=== PATIENT | female | born 1975 | race Caucasian/White ===

== ENCOUNTER 2019-05-13 14:26 | Emergency (ER) | payer MEDICAID ==
[~2019-05-13] VITALS: Ht 157.5 cm; Wt 82.7 kg
[2019-05-13 14:31] VITALS: BP 106/81
[2019-05-13] MEDS ORDERED: METH4TAB81 PO (14:56)
== END 2019-05-13 15:42 | disposition home or self-care (01) ==
LOC: ER 14:27
DX: M25.50 Pain in unspecified joint (principal); R21 Rash and other nonspecific skin eruption; Z79.899 Other long term (current) drug therapy
CPT/HCPCS: 99283

== ENCOUNTER 2020-07-03 08:55 | Day surgery (SDC) | payer MEDICAID ==
[2020-07-01 11:39] LABS: BASOPHILS # (AUTO) 0.1 X10'3 (0-0.2); BASOPHILS % (AUTO) 0.8 % (0-1); EOSINOPHILS # (AUTO) 0.3 X10'3 (0-0.9); EOSINOPHILS % (AUTO) 3.6 % (0-6); HEMATOCRIT 40.9 % (35.0-45.0); HEMOGLOBIN 13.7 g/dl (12.0-16.0); LYMPHOCYTES # (AUTO) 2.3 X10'3 (1.1-4.8); LYMPHOCYTES % (AUTO) 23.8 % (21-51); MEAN CORPUSCULAR HEMOGLOBIN 29.6 PG (27.0-31.0); MEAN CORPUSCULAR HGB CONC 33.5 g/dL (33.0-36.5); MEAN CORPUSCULAR VOLUME 88.4 FL (78-98); MONOCYTES # (AUTO) 0.5 X10'3 (0-0.9); MONOCYTES % (AUTO) 5.8 % (2-12); NEUTROPHILS # (AUTO) 6.3 X10'3 (1.8-7.7); PLATELET COUNT 338 X10'3 (140-440); RED BLOOD COUNT 4.62 X10'6 (4.20-5.60); RED CELL DISTRIBUTION WIDTH 14.3 % (11.5-14.5); WHITE BLOOD COUNT 9.5 X10'3 (4.5-11.0)
[2020-07-01 11:51] LABS: PARTIAL THROMBOPLASTIN TIME 29 SECONDS (22-32)
[2020-07-01 12:10] LABS: ALANINE AMINOTRANSFERASE 30 U/L (12-78); ALBUMIN 3.6 G/DL (3.4-5.0); ALKALINE PHOSPHATASE 53 IU/L (46-116); ANION GAP 8 (8-16); ASPARTATE AMINO TRANSFERASE 18 U/L (10-37); BILIRUBIN,TOTAL 0.3 MG/DL (0.1-1.0); BLOOD UREA NITROGEN 13 MG/DL (7-18); BUN/CREATININE RATIO 16.9 (6.6-38.0); CALCIUM 9.1 MG/DL (8.5-10.1); CHLORIDE 104 MMOL/L (99-107); CREATININE 0.77 MG/DL (0.40-0.90); GLUCOSE 118 MG/DL (70-104); POTASSIUM 3.7 MMOL/L (3.5-5.1); SODIUM 139 MMOL/L (135-145); TOTAL CARBON DIOXIDE 27.2 MMOL/L (24-32); TOTAL PROTEIN 7.3 G/DL (6.4-8.2); eGFR 81 ML/MIN
[~2020-07-03] VITALS: Ht 160 cm; Wt 79.2 kg
[2020-07-03] VITALS (12 sets, daily range): BP systolic 111–138; BP diastolic 69–90
[~2020-07-03 08:55] MED LIST: METH4TAB81 PO
[2020-07-03] MEDS ORDERED: diphenhydrAMINE 25mg capsule PO PRN (09:15)
[2020-07-03] MEDS ORDERED: normal saline 1,000 ML IV SCH (09:15)
[2020-07-03] MEDS ORDERED: nitroGLYCERIN 0.4mg SUBLingual tab SL PRN (09:15)
[2020-07-03] MEDS ORDERED: LORazepam 0.5 MG tablet PO PRN (09:15)
[2020-07-03] MEDS ORDERED: NITR0.4T48 SL (09:23)
[2020-07-03] MEDS ORDERED: BUPR150T6 PO (09:23)
[2020-07-03] MEDS ORDERED: METO-395 PO (09:23)
[2020-07-03] MEDS ORDERED: MELO-102 PO (09:23)
[2020-07-03] MEDS ORDERED: MULT-1074 PO (09:23)
[2020-07-03] MEDS ORDERED: VARE1TAB22 PO (09:23)
[2020-07-03] MEDS ORDERED: METH10TA6 PO (09:23)
[2020-07-03] MEDS ORDERED: iohexol 350 MG/ML 50ML vial IV ONE (10:39)
[2020-07-03] MEDS ORDERED: fentaNYL/PF 50MCG/1 ML 2ML syringe ONE ×2 (10:39→11:11)
[2020-07-03] MEDS ORDERED: midazolam 2 mg/2 ml injection ONE ×2 (10:39→11:11)
[2020-07-03] MEDS ORDERED: LIDOcaine 1% (10mg/ml)w/preservative injection 20ml MDV ONE (10:39)
[2020-07-03] MEDS ORDERED: iohexol 350MG/ML 100ml bottle IV ONE (10:39)
--- NOTE | 2020-07-03 13:00 | NUR ---
Pt urinated 300mL clear, yellow urine in bedpan.
== END 2020-07-03 18:00 | disposition home or self-care (01) ==
LOC: SSTAY O 08:55
PROVIDERS: ATTEND Internal Medicine Cardiovascular Disease
DX: R94.39 Abnormal result of other cardiovascular function study (principal); I25.119 Atherosclerotic heart disease of native coronary artery with unspecified angina pectoris; I25.82 Chronic total occlusion of coronary artery; I10 Essential (primary) hypertension; E78.5 Hyperlipidemia, unspecified; E66.9 Obesity, unspecified; Z68.30 Body mass index [BMI] 30.0-30.9, adult; F17.210 Nicotine dependence, cigarettes, uncomplicated; Z88.1 Allergy status to other antibiotic agents; Z88.8 Allergy status to other drugs, medicaments and biological substances; Z98.890 Other specified postprocedural states; Z79.899 Other long term (current) drug therapy; Z79.01 Long term (current) use of anticoagulants
CPT/HCPCS: 36415; 71046; 80053; 85025; 85610; 85730; 93005; 93458; 99152; C1760; C1769; J1644; J2001; J2250; J3010; J7030; Q0163; Q9967; A6258

== ENCOUNTER 2020-07-05 21:07 | Emergency (ER) | payer MEDICAID ==
[~2020-07-05] VITALS: Ht 160 cm; Wt 80.2 kg
[~2020-07-05 21:07] MED LIST changes: +BUPR150T6 PO; +MELO-102 PO; +METH10TA6 PO; -METH4TAB81 PO; +METO-395 PO; +MULT-1074 PO; +NITR0.4T48 SL; +VARE1TAB22 PO
[2020-07-05 21:13] VITALS: BP 153/90
[2020-07-05] MEDS ORDERED: morphine 4 MG/ML inj SYRINge IM ONE (22:40)
== END 2020-07-06 01:17 | disposition home or self-care (01) ==
LOC: ER 21:08
DX: S93.691A Other sprain of right foot, initial encounter (principal); M79.604 Pain in right leg; R20.0 Anesthesia of skin; R11.0 Nausea; Z72.89 Other problems related to lifestyle; Z79.899 Other long term (current) drug therapy; X58.XXXA Exposure to other specified factors, initial encounter; Y93.89 Activity, other specified; Y92.89 Other specified places as the place of occurrence of the external cause; Y99.8 Other external cause status
CPT/HCPCS: 93926; 96372; 99284; J2270

== ENCOUNTER 2022-04-17 14:51 | Emergency (ER) | payer MEDICAID ==
[~2022-04-17] VITALS: Ht 157.5 cm; Wt 90.9 kg
[~2022-04-17 14:51] MED LIST changes: +BUPR-317 PO; -BUPR150T6 PO; +METH-375 PO; -METH10TA6 PO
[2022-04-17 15:36] VITALS: BP 127/79
[2022-04-17] MEDS ORDERED: TETanus/Pertussis (Acell)/Diphther VAC/PF (Tdap-Adult) 0.5ml syringe IMVAC ONE (15:55)
[2022-04-17] MEDS ORDERED: bacitracin 15gm ointment TP ONE (15:55)
[2022-04-17] MEDS ORDERED: LIDOcaine 1% W/epiNEPHrine 1:200,000 10ml vial IJ ONE (15:55)
--- NOTE | 2022-04-17 16:26 | NUR ---
WOUND IRR WITH 150ML NACL
== END 2022-04-17 16:43 | disposition home or self-care (01) ==
LOC: ER 14:53
DX: S61.211A Laceration without foreign body of left index finger without damage to nail, initial encounter (principal); X58.XXXA Exposure to other specified factors, initial encounter; Y93.89 Activity, other specified; Y92.89 Other specified places as the place of occurrence of the external cause; Y99.8 Other external cause status
CPT/HCPCS: 12001; 90471; 90715; 99283; A6449

== ENCOUNTER → 2024-02-19 | Outpatient (CLI) | payer MEDICAID ==
[~2024-02-19] MED LIST changes: +ASPI-611 PO; +ATOR40TA72 PO; -BUPR-317 PO; +CELE-127 PO; +GABA300C PO; +LEVO150T8 PO; +LISI10TA27 PO; -MELO-102 PO; -METH-375 PO; -METO-395 PO; -MULT-1074 PO; -NITR0.4T48 SL; -VARE1TAB22 PO
== END | disposition home or self-care (01) ==
LOC: MRI 08:40
PROVIDERS: ATTEND Nurse Practitioner Adult Health
DX: M47.812 Spondylosis without myelopathy or radiculopathy, cervical region (principal); M48.02 Spinal stenosis, cervical region; M25.78 Osteophyte, vertebrae; M54.2 Cervicalgia; M25.511 Pain in right shoulder
CPT/HCPCS: 72141

== ENCOUNTER 2024-08-26 00:24 | Emergency (ER) | payer MEDICAID ==
[~2024-08-26] VITALS: Ht 157.5 cm; Wt 85.0 kg
[2024-08-26] MEDS ORDERED: PRED20TA PO (02:18)
[2024-08-26] MEDS: dexamethasone sod phosphate 10mg/ml inj PO STA (03:00)
[2024-08-26 03:07] VITALS: BP 125/88; PULSE 82; RESP 18; TEMP 98.4; O2SAT 98
== END 2024-08-26 03:03 | disposition home or self-care (01) ==
LOC: ER 00:25
DX: R21 Rash and other nonspecific skin eruption (principal); I50.9 Heart failure, unspecified; E03.9 Hypothyroidism, unspecified; F31.9 Bipolar disorder, unspecified; I25.2 Old myocardial infarction; Z88.8 Allergy status to other drugs, medicaments and biological substances; Z88.2 Allergy status to sulfonamides
CPT/HCPCS: 99283; J1100

== ENCOUNTER 2024-09-02 10:55 | Emergency (ER) | payer MEDICAID ==
[~2024-09-02] VITALS: Ht 157.5 cm; Wt 83.6 kg
[~2024-09-02 10:55] MED LIST changes: +PRED20TA PO
[2024-09-02 10:57] VITALS: BP 127/88; PULSE 90; RESP 16; TEMP 98.1; O2SAT 100
[2024-09-02] MEDS ORDERED: ERYT1OIN6 RIGHTEYE (12:51)
== END 2024-09-02 12:58 | disposition home or self-care (01) ==
LOC: ER 10:56
DX: H10.9 Unspecified conjunctivitis (principal); I50.9 Heart failure, unspecified; E03.9 Hypothyroidism, unspecified; Z88.0 Allergy status to penicillin; Z88.2 Allergy status to sulfonamides; Z88.8 Allergy status to other drugs, medicaments and biological substances
CPT/HCPCS: 99283

== ENCOUNTER 2024-10-27 06:14 | Outpatient (CLI) | payer MEDICAID ==
[~2024-10-27 06:14] MED LIST changes: -PRED20TA PO
[2024-10-27] MEDS ORDERED: LIDOcaine 1%/PF 5ML 10 MG/ML VIAL ONE (06:41)
[2024-10-27] MEDS ORDERED: iohexol 300 MG/1 ML 50ml polymer ONE (06:41)
[2024-10-27] MEDS ORDERED: LIDOcaine 1% 30ml preserv. free vial ONE (06:42)
[2024-10-27] MEDS ORDERED: GADOTERATE MEGLUMINE 7.5 MMOL/15 ML VIAL IV ONE (06:42)
== END 2024-10-27 23:59 | disposition home or self-care (01) ==
LOC: RAD 06:14
PROVIDERS: ATTEND Pediatrics Sports Medicine
DX: M25.511 Pain in right shoulder (principal); M75.41 Impingement syndrome of right shoulder; M75.101 Unspecified rotator cuff tear or rupture of right shoulder, not specified as traumatic; M75.51 Bursitis of right shoulder
CPT/HCPCS: 73222; A9575; J2003; J3490; Q9967; 23350

== ENCOUNTER 2025-09-07 20:43 | Emergency (ER) | payer MEDICAID ==
[~2025-09-07] VITALS: Ht 157.5 cm; Wt 71.0 kg
[~2025-09-07 20:43] MED LIST changes: +CYCL-1 PO
[2025-09-07 21:39] VITALS: BP 129/61; PULSE 69; RESP 15; TEMP 97.6; O2SAT 98
[2025-09-07 22:03] LABS: URINE HCG NEGATIVE (NEG)
[2025-09-07 22:04] LABS: LEUKOCYTE ESTERASE ,URINE NEGATIVE (Neg); NITRITES, URINE POSITIVE (Neg); OCCULT BLOOD,URINE NEGATIVE (Neg)
[2025-09-07 22:09] LABS: UA COLLECTION TYPE CLN CATCH MIDSTREAM
[2025-09-07 22:12] LABS: MUCUS STRANDS MANY /LPF (Neg); SQUAMOUS EPITHELIAL CELL,UR NONE SEEN /LPF (FEW)
[2025-09-07 22:30] LABS: MEAN PLATELET VOLUME 7.5 FL (7.4-10.4); RED CELL DISTRIBUTION WIDTH 14.0 % (11.5-14.5)
[2025-09-07 22:57] LABS: CREATININE 0.85 MG/DL (0.40-0.90); TOTAL CARBON DIOXIDE 32.0 MMOL/L (24-32); eCRCL 63 ML/MIN; eGFR 71 ML/MIN
[2025-09-08] MEDS ORDERED: CEFP200T13 PO (00:55)
--- NOTE | 2025-09-08 00:55 | Physician Documentation ---
History of Present Illness ~ Chief Complaint: Urinary Retention Stated Complaint: URINARY RETENTION Time Seen by MD: 00:46 Primary Medical Doctor: [facility] This is a very pleasant 49-year-old female with no significant past medical history who presents for evaluation of left flank pain, dysuria, frequency, urgency that has been on and off for the last month. No particular palliating or aggravating factors. Did not attempt to treat it. Eventually decided to come in for evaluation. Denies any current nausea or vomiting. She typically gets nausea and vomiting for the 1st two days after administration of a weekly Wegovy. Denies any other symptoms. Denies any concerns for tobacco, alcohol or illicit substances use. Medication Reconciliation Allergies: Coded Allergies: pregabalin (Verified Allergy, Intermediate, "Makes me crazy", 09/07/25) Penicillins (Unverified Adverse Reaction, Mild, vomiting, 09/07/25) >5 years, vomiting, no treatment, PEN-FAST 0 Sulfa (Sulfonamide Antibiotics) (Unverified Adverse Reaction, Mild, vomiting, 09/07/25) Scheduled Aspirin (Aspir 81), 1 TAB PO DAILY, (Reported) Atorvastatin Calcium (Atorvastatin Calcium), 1 TAB PO DAILY, (Reported) Celecoxib (Celecoxib), 1 CAP PO DAILY, (Reported) Cyclobenzaprine* (Cyclobenzaprine*), 1 TAB PO Q8H Gabapentin (Neurontin), 1 CAP PO TID, (Reported) Levothyroxine Sodium (Levothyroxine Sodium), 165 MCG PO DAILY, (Reported) Lisinopril (Lisinopril), 1 TAB PO DAILY, (Reported) Past Medical History Past Medical History: No Pertinent History, Congestive Heart Failure, Myocardial Infarction, Hypothyroidism, Bipolar Past Surgical History: noncontributory Patient History: Patient reports no known family medical history. Smoking Status: Current every day smoker Alcohol Use: Occasionally Lives In: Home Review of Systems ROS 10 point review of systems was performed and unless noted above in HPI is negative for acute process/complaint. Physical Exam Vital Signs: Temperature: 97.6, Source: Temporal, Heart Rate: 69, Respiratory Rate: 15, BP: 129/61, Pulse Oximetry: 98, Weight: 71.000 Physical Exam GENERAL: Awake, alert, oriented, GCS 15, no apparent distress, non-toxic appearing, answers questions, follows commands appropriately. Examined in bed 19 HEENT: Atraumatic, normocephalic, pupils equal, extraocular muscles intact, sclerae anicteric, mucus membranes moist, oropharynx is clear, no stridor. NECK: supple, full active range of motion, trachea midline, no thyromegaly, no lymphadenopathy, no JVD. CARDIOVASCULAR: regular rate/rhythm, no murmurs/gallops/rubs, Pulses are 2+ in all extremities and symmetric. Capillary refill less than 2 seconds. PULMONARY: Nonlabored, good air movement ,no respiratory distress, speaking in full sentences, clear to auscultation bilaterally, no wheezing, no ronchi, no rales, no accessory muscle use. GASTROINTESTINAL: Soft, non-tender, non-distended, normal active bowel sounds, no organomegaly, no pulsatile masses, left CVA tenderness. NEUROLOGIC: Lucid with normal mental status. Normal facial symmetry. Moves all extremities symmetrically and with purpose. No truncal ataxia. Speech is fluid without evidence of dysarthria or aphasia, no focal deficits appreciated. MUSCULOSKELETAL: There is full range of motion of all extremities. There is no joint pain or joint swelling or joint erythema. There is no muscle pain or tenderness or swelling. EXTREMITIES: warm, well-perfused, no cyanosis, no clubbing, no edema, no acute deformities. Skin: warm, dry, no rashes or lesions, no jaundice, no petechiae orpurpura. No ecchymosis. PSYCHIATRIC: Normal affect, normal insight, normal concentration. Focused exam: [] Progress Results/Orders Results/Orders Orders - ISAAC LOWE DO Cult Urine + [place] (09/07/25 22:12) Completed Orders - ISAAC LOWE DO Hcg, Ur Ql (09/07/25 21:46) Cbc/Diff (09/07/25 21:46) BMP (09/07/25 21:46) Lipase (09/07/25 21:46) CMP (09/07/25 21:46) Ua W/Microscopic, Cult If Ind (09/07/25 21:47) Vital Signs 09/07/25 21:39 Temp 97.6 Pulse 69 Resp 15 B/P (MAP) 129/61 Pulse Ox 98 Laboratory Tests Test 09/07/25 21:47 09/07/25 22:14 Urine Specimen Description Cln catch midstream Urine Color Yellow Urine Clarity Slightly cloudy Urine pH 6.0 Urine Specific [place] >=1.030 Urine Protein 30 H Urine Glucose (UA) Negative Urine Ketones Trace H Urine Occult Blood Negative Urine Nitrite Positive H Urine Bilirubin Moderate Urine Urobilinogen 0.2 Urine Leukocyte Esterase Negative Urine RBC 3-10 Urine WBC 10-20 H Urine Squamous Epithelial Cells None seen Urine Bacteria 2+ Urine Mucus Many Urine Culture Indicated Indicated Volume Urine Centrifuged 10 ml Urine HCG, Qualitative Negative Urine Comment White Blood Count 5.8 Red Blood Count 4.54 Hemoglobin 13.5 Hematocrit 39.7 Mean Corpuscular Volume 87.5 Mean Corpuscular Hemoglobin 29.8 Mean Corpuscular Hemoglobin Concent 34.0 Red Cell Distribution Width 14.0 Platelet Count 309 Mean Platelet Volume 7.5 Neutrophils (%) (Auto) 56.2 Lymphocytes (%) (Auto) 28.9 Monocytes (%) (Auto) 12.0 Eosinophils (%) (Auto) 2.1 Basophils (%) (Auto) 0.8 Neutrophils # (Auto) 3.3 Lymphocytes # (Auto) 1.7 Monocytes # (Auto) 0.7 Eosinophils # (Auto) 0.1 Basophils # (Auto) 0.0 CBC Comment Sodium Level 140 Potassium Level 3.5 Chloride Level 101 Carbon Dioxide Level 32.0 Anion Gap 7 L Blood Urea Nitrogen 7 Creatinine 0.85 Estimated GFR/1.73 m2 71 BUN/Creatinine Ratio 8.2 L Glucose Level 86 Calcium Level 9.4 Total Bilirubin 0.5 Aspartate Amino Transf (AST/SGOT) 21 Alanine Aminotransferase (ALT/SGPT) 27 Alkaline Phosphatase 50 Total Protein 7.4 Albumin 4.0 Globulin 3.4 Albumin/Globulin Ratio 1.2 Lipase 53 Chemistry Comments Microbiology Date/Time Source Procedure Growth Status 09/07/25 22:12 Urine Clean Catch Midstream Urine Culture - Preliminary Culture received. Resulted Medical Decision Making Additional information obtaine: N/A Findings Facility Status: [facility] The plan was discussed with the patient, who demonstrates clear understanding of the plan and is in agreement with the plan unless otherwise noted in the chart. All questions have been answered, all concerns were addressed unless otherwise documented. I was available throughout their ED stay for frequent reassessment and questions. Differential Diagnoses (considered and possible or likely): [Urinary tract infection, pyelitis, pyelonephritis, less likely kidney stone, less likely infected kidney stone, less likely acute intra-abdominal process requiring surgical intervention] ??Differential Diagnoses (considered and unlikely, not requiring evaluation currently): [No evidence of trauma] MDM Data Please see [facility] for the following: Independent Historians and external Records Review. Historian: [Patient] Independent Historians: ?[None] Medication Management: [Reviewed medication list] Social History and determinants: [Reviewed] Please see the body of the note for the following: Any independent interpretations of ECG, imaging studies. All vitals signs/haemodynamics, ordered tests were independently reviewed and interpreted by myself. Nursing triage complaint and vitals reviewed, additional nursing notes were reviewed as available and I agree unless otherwise noted or documented in contradiction in the chart Vital Signs: Independently reviewed Labs: Independently interpreted Imaging: Independently interpreted Old Medical Records: Independently reviewed, see [facility] for relevant summary and information Additionally notably showing: [Hemodynamically stable. Laboratory workup was unremarkable except that you were in the is positive for UTI.] Tests considered but not ordered include: [Advanced imaging has been considerably does not appear to be necessary.] Social Determinants of Health Impact: Patient was evaluated in [facility] [place] to healthcare due to below par ratio of patient to medical providers. [] Comorbid Conditions Impacting Present Evaluation and Care/Treatment: [None reported with the patient] Management Discussions with other Healthcare Providers: [None] Treatment and Disposition Medication Management (Given or considered): [1st dose of antibiotics, pain management]. See EMR for details Consideration for Hospitalization/Escalation/Deescalation of Care: Admission for observation has been considered, [however the patient is able to tolerate p.o., their symptoms are controlled, they are able to rely on oral medications, and their chief complaint/diagnosis can be managed on outpatient basis.] ?ED Course:?[No clinical deterioration.] ?Shared decision making:?[Patient is hemodynamically stable for discharge home with follow with their primary care provider. [ ] Specific and cautious return precautions provided and discussed with full understanding. Any incidental findings were also discussed and follow up recommendations given. [] All questions answered. Patient/family were able to verbalize back return precautions. Patient/family agree to plan. Copies of imaging and laboratory s tudies were provided.] Code status:?FULL Please see the full Electronic Medical Record for full details of nursing documentation, medications list, other records of complete past medical history and conditions, vital signs, laboratory studies, and any radiologic study interpretations by radiologists. Portions of this note were completed using [employer] dictation software and as a result there may exist minor errors in spelling. I have reviewed elements of past family and social history and agree as included in note. Urinary Diff Dx:Considerations: Include: Other (See body of main note for differential diagnosis) Genital Diff Dx:Considerations: Unlikely: Other Departure Disposition: HOME / SELF CARE / HOMELESS Impression: Primary Impression: Pyelonephritis of left kidney Condition: Improved Discharge Instructions: Pyelonephritis, Adult Referrals: NO PRIMARY CARE PROVIDER (PCP) Prescriptions Cefpodoxime Proxetil (Vantin) 200 Mg Tablet 1 TAB PO Q12H for 10 Days, #20 TAB Prov: ISAAC LOWE DO 09/08/25 Education Educated: Patient Educated regarding: diagnosis, treatment, prognosis, need for follow up Signature Scribe Signature: No scribe Attestation: The note accurately reflects work and decisions made by me.Isaac Lowe DO 09/08/25 00:55 ISAAC LOWE DO Sep 08, 2025 00:55
[2025-09-08] MEDS: phenazopyridine 100mg tablet PO ONE (01:08)
[2025-09-08] MEDS: CefTRIAXone 500MG IM Kit w/LIDOcaine IM ONE (01:09)
== END 2025-09-08 01:23 | disposition home or self-care (01) ==
LOC: ER 20:44
DX: N12 Tubulo-interstitial nephritis, not specified as acute or chronic (principal); F17.200 Nicotine dependence, unspecified, uncomplicated; Z88.0 Allergy status to penicillin; Z88.2 Allergy status to sulfonamides; Z88.8 Allergy status to other drugs, medicaments and biological substances; Z79.82 Long term (current) use of aspirin
CPT/HCPCS: 36415; 80053; 81001; 81025; 83690; 85025; 87088; 96372; 99283; J0696

== ENCOUNTER 2025-09-13 16:13 | Emergency (ER) | payer MEDICAID ==
[~2025-09-13] VITALS: Ht 157.5 cm; Wt 69.1 kg
[~2025-09-13 16:13] MED LIST changes: +CEFP200T13 PO
[2025-09-13 16:15] VITALS: BP 124/79; PULSE 68; O2SAT 98
[2025-09-13 17:06] VITALS: RESP 20
[2025-09-13 18:24] LABS: LEUKOCYTE ESTERASE ,URINE SMALL (Neg); NITRITES, URINE NEGATIVE (Neg); OCCULT BLOOD,URINE TRACE-INTACT (Neg)
[2025-09-13 18:30] LABS: UA COLLECTION TYPE CLN CATCH MIDSTREAM
[2025-09-13 18:35] LABS: SQUAMOUS EPITHELIAL CELL,UR MANY /LPF (FEW); YEAST MODERATE /HPF (NEGATIVE)
[2025-09-13 18:48] LABS: MEAN PLATELET VOLUME 7.8 FL (7.4-10.4); RED CELL DISTRIBUTION WIDTH 14.2 % (11.5-14.5)
[2025-09-13 19:00] LABS: CREATININE 0.86 MG/DL (0.40-0.90); TOTAL CARBON DIOXIDE 33.2 MMOL/L (24-32); eCRCL 62 ML/MIN; eGFR 70 ML/MIN
[2025-09-13] MEDS: ondansetron/PF 4mg/2ml inj IV ONE (19:10)
[2025-09-13] MEDS: CefTRIAXone 1000mg IM Kit (w/lidocaine diluent) IM ONE (19:10)
[2025-09-13 19:38] VITALS: TEMP 96.7
[2025-09-13] MEDS: normal saline 1000ml 1,000 ML IV ONE (19:57)
--- NOTE | 2025-09-13 20:18 | Physician Documentation ---
History of Present Illness Chief Complaint: Flank Pain Stated Complaint: FLANK PAIN Time Seen by MD: 17:18 Primary Medical Doctor: [facility] Mode of Arrival: RACHEL DOUGHERTY Is a very pleasant 49-year-old female that presents to the emergency department for evaluation of flank pain. Patient reports that she has recently started a DLP 1 isn't eating in the last 3 weeks and has had significant nausea and vomiting. Patient reports he has been able to take down keep down any of her psych meds and keep down anything antibiotics that she was prescribed in the of this month. Patient reports she was seen here on the for similar symptoms and at that time diagnosed with a UTI. Today the patient reports that she is continuing to have UTI symptoms and now she has left-sided flank pain. Patient reports he may have had fevers has chills has nausea and vomiting no diarrhea reported at this time. Patient denies chest pain shortness of breath headache abdominal pain or any other symptoms at this time. Medication Reconciliation Allergies: Coded Allergies: pregabalin (Verified Allergy, Intermediate, "Makes me crazy", 09/13/25) Penicillins (Unverified Adverse Reaction, Mild, vomiting, 09/13/25) >5 years, vomiting, no treatment, PEN-FAST 0 Sulfa (Sulfonamide Antibiotics) (Unverified Adverse Reaction, Mild, vomiting, 09/13/25) Scheduled Aspirin (Aspir 81), 1 TAB PO DAILY, (Reported) Atorvastatin Calcium (Atorvastatin Calcium), 1 TAB PO DAILY, (Reported) Cefpodoxime Proxetil (Vantin), 1 TAB PO Q12H Celecoxib (Celecoxib), 1 CAP PO DAILY, (Reported) Cyclobenzaprine* (Cyclobenzaprine*), 1 TAB PO Q8H Gabapentin (Neurontin), 1 CAP PO TID, (Reported) Levothyroxine Sodium (Levothyroxine Sodium), 165 MCG PO DAILY, (Reported) Lisinopril (Lisinopril), 1 TAB PO DAILY, (Reported) Past Medical History Past Medical History: No Pertinent History, Congestive Heart Failure, Myocardial Infarction, Hypothyroidism, Bipolar Past Surgical History: noncontributory Patient History: Patient reports no known family medical history. Alcohol Use: Occasionally Lives In: Home Review of Systems ROS As stated above in the HPI, otherwise all systems are reviewed and negative. Physical Exam Vital Signs: Temperature: 96.7, Source: Temporal, Heart Rate: 68, Respiratory Rate: 20, BP: 124/79, Pulse Oximetry: 98, Weight: 69.100 Oxygen Flow Rate: 0 Physical Exam VITALS: Reviewed and as above. GENERAL: Alert, no apparent distress. HEENT: Normocephalic, atraumatic, PERRL, EOMI, dry mucosa, no erythema RESPIRATORY: Lungs clear, normal breath sounds, no respiratory distress. CHEST: No accessory muscle use, no retractions CV: Regular rate, rhythm, no edema, no murmur, No: JVD GI: Soft, non-tender, bowels sounds present, no rebound, guarding, or rigidity BACK: Positive left CVA tenderness, or swelling MUSCULOSKELETAL No deformities, no edema SKIN: Warm and dry, no rash NEURO: Oriented x4, No motor or sensory deficit PSYCH: Normal mood and affect, no agitation Progress Results/Orders Results/Orders Orders - SUZANNE NINA [employer] * Iv Access / Saline Lock * (09/13/25 19:10) Ondansetron Inj. (Zofran 4mg/2ml Vial) (09/13/25 19:10) Ceftriaxone/H7o-Ebsbayyc 1gm (Rocephin 1 (09/13/25 20:00) Completed Orders - SUZANNE NINA [employer] Cbc/Diff (09/13/25 18:13) CMP (09/13/25 18:13) Ua W/Microscopic, Cult If Ind (09/13/25 16:26) Normal Saline 1000ml (0.9% Sodium Chlori (09/13/25 19:10) Ceftriaxone Im Kit W/Lidocaine (Rocephin (09/13/25 19:10) Medications Received in ER Medications (Trade) Dose Ordered Sig/Vanessa Route PRN Reason Start Time Stop Time Status Last Admin Dose Admin Sodium Chloride 1,000 ml @ 1,000 mls/hr ONCE ONCE IV 09/13/25 19:10 09/13/25 20:09 DC 09/13/25 19:57 1,000 MLS/HR Vital Signs 09/13/25 09/13/25 09/13/25 16:15 17:06 19:38 Temp 96.7 96.7 Pulse 68 Resp 16 20 B/P (MAP) 124/79 Pulse Ox 98 O2 Flow Rate 0 Laboratory Tests Test 09/13/25 16:26 09/13/25 18:24 Urine Specimen Description Cln catch midstream Urine Color Yellow Urine Clarity Slightly cloudy Urine pH 6.0 Urine Specific Buford <=1.005 Urine Protein Negative Urine Glucose (UA) Negative Urine Ketones Trace H Urine Occult Blood Trace-intact Urine Nitrite Negative Urine Bilirubin Negative Urine Urobilinogen 0.2 Urine Leukocyte Esterase Small H Urine RBC 0-2 Urine WBC 10-20 H Urine Squamous Epithelial Cells Many Urine Bacteria 1+ Urine Hyaline Casts 3-5 Urine Yeast Moderate Urine Culture Indicated Rejected for culture Volume Urine Centrifuged 10 ml Urine Comment White Blood Count 5.1 Red Blood Count 4.56 Hemoglobin 13.7 Hematocrit 40.0 Mean Corpuscular Volume 87.8 Mean Corpuscular Hemoglobin 29.9 Mean Corpuscular Hemoglobin Concent 34.1 Red Cell Distribution Width 14.2 Platelet Count 302 Mean Platelet Volume 7.8 Neutrophils (%) (Auto) 59.2 Lymphocytes (%) (Auto) 28.7 Monocytes (%) (Auto) 8.9 Eosinophils (%) (Auto) 2.3 Basophils (%) (Auto) 0.9 Neutrophils # (Auto) 3.0 Lymphocytes # (Auto) 1.5 Monocytes # (Auto) 0.5 Eosinophils # (Auto) 0.1 Basophils # (Auto) 0.0 CBC Comment Sodium Level 141 Potassium Level 3.3 L Chloride Level 100 Carbon Dioxide Level 33.2 H Anion Gap 8 Blood Urea Nitrogen 8 Creatinine 0.86 Estimated GFR/1.73 m2 70 BUN/Creatinine Ratio 9.3 L Glucose Level 76 Calcium Level 9.9 Total Bilirubin 0.7 Aspartate Amino Transf (AST/SGOT) 23 Alanine Aminotransferase (ALT/SGPT) 28 Alkaline Phosphatase 51 Total Protein 7.3 Albumin 4.2 Globulin 3.1 Albumin/Globulin Ratio 1.4 Chemistry Comments Medical Decision Making Additional information obtaine: other Findings Medical Decision Making - Discharge Number of Diagnoses/Management Options: Moderate This 49-year-old female presents with left-sided flank pain, fever, chills, nausea, and vomiting in the setting of persistent UTI symptoms despite recent antibiotic treatment initiated on the of this month. She was previously diagnosed with a urinary tract infection but has been unable to complete her antibiotic course due to intractable nausea and vomiting, which began after starting a dipeptidyl peptidase-4 (DPP-4) inhibitor approximately three weeks ago. DPP-4 inhibitors are associated with gastrointestinal adverse events including nausea, though these are generally less common than with other antidiabetic agents. The combination of flank pain with laboratory evidence of urinary tract infection is highly suggestive of acute pyelonephritis. The patient's inability to tolerate oral antibiotics due to medication-induced nausea represents a significant complicating factor that likely contributed to treatment failure of her initial UTI and progression to upper tract infection. Amount and Complexity of Data: Moderate Urinalysis demonstrated pyuria and bacteriuria consistent with urinary tract infection. Urine culture with antimicrobial susceptibility testing was obtained to guide definitive antibiotic therapy. Given the patient's clinical stability without signs of sepsis or septic shock, imaging was not indicated at this time. The patient received appropriate supportive care in the emergency department including intravenous fluid resuscitation (1 liter) and antiemetic therapy with ondansetron. Risk of Complications: Moderate The patient's persistent nausea and vomiting precluding oral intake necessitated initial intravenous antibiotic therapy and antiemetic management. However, she does not meet criteria for hospital admission as she lacks severe illness, sepsis, or critical modifying factors. Extended emergency department observation with transition to outpatient oral therapy is appropriate for patients who initially require intravenous therapy but are otherwise stable. Assessment and Plan: Acute pyelonephritis - The patient received an initial dose of intravenous ceftriaxone 1 gram in the emergency department, which is recommended when local fluoroquinolone resistance exceeds 10% or when oral therapy tolerance is uncertain. Following clinical improvement and demonstrated tolerance of oral intake, she will be transitioned to oral ciprofloxacin 500 mg twice daily for 7 days, pending urine culture susceptibility results. If the organism demonstrates resistance to fluoroquinolones, therapy will be adjusted based on susceptibility data. DPP-4 inhibitor-associated nausea and vomiting - The temporal relationship between DPP-4 inhibitor initiation and onset of gastrointestinal symptoms, combined with the patient's inability to tolerate oral medications for three weeks, strongly suggests drug-induced nausea. Recommend discontinuation of the DPP-4 inhibitor and consultation with her primary care physician or facing baster for alternative diabetes management. Ondansetron 4-8 mg every 8 hours as needed has been prescribed for breakthrough nausea. Medication adherence - Given resolution of nausea with intravenous ondansetron and ability to tolerate oral intake in the emergency department, the patient should be able to complete the oral antibiotic course. She has been counseled on the importance of completing the full 7-day course and maintaining adequate hydration. Disposition: Discharge home with close outpatient follow-up in 48-72 hours to assess clinical response to antibiotic therapy. The patient has been instructed to return immediately for worsening symptoms, persistent fever beyond 48-72 hours, or inability to tolerate oral antibiotics, as these would warrant repeat evaluation and possible imaging. Follow-up: Urine culture results will be reviewed within 48 hours and antibiotic therapy adjusted if needed based on susceptibility data. Primary care follow-up scheduled within one week to reassess diabetes management and discuss alternative to DPP-4 inhibitor. Differential Dx:Considerations: Urinary obstruction, Urinary tract infection, Urolithiasis, Other, N/A Departure Disposition: HOME / SELF CARE / HOMELESS Impression: Primary Impression: Acute urinary tract infection Condition: Stable Discharge Instructions: Dehydration, Adult, [id number], Pyelonephritis, Adult Additional Instructions: Your Diagnosis You have been diagnosed with acute pyelonephritis, which is a kidney infection. This is a more serious type of urinary tract infection that affects the kidneys rather than just the bladder. What We Did in the Emergency Department Gave you intravenous (IV) fluids to help with dehydration Gave you ondansetron (Zofran) for nausea and vomiting Gave you ceftriaxone (Rocephin), an antibiotic through your IV Collected a urine sample to test which bacteria is causing your infection Your Medications Continue taking your prescribed antibiotics exactly as directed. It is very important that you complete the full course of antibiotics, even if you start feeling better. Do not stop taking them early, as this can allow the infection to come back or become resistant to treatment. Take ondansetron (Zofran) as prescribed for nausea. This should help you keep down your antibiotics and other medications. Once you are able to keep down food and liquids without vomiting, you should restart your psychiatric medications as prescribed by your doctor. What to Do at Home Drink plenty of fluids - aim for 8-10 glasses of water per day to help flush out the infection Rest - your body needs energy to fight the infection Take all medications as prescribed - set reminders if needed to help you remember Eat small, frequent meals if you still have some nausea Monitor your temperature - check it twice daily for the first few days Follow-Up Care You must follow up with your primary care provider within 2-3 days. This is very important to make sure the infection is improving and that the antibiotic you are taking is working against the bacteria causing your infection. Your doctor will review your urine culture results and may need to change your antibiotic based on those results. You should also discuss your recent nausea and vomiting with your primary care provider, especially regarding the diabetes medication you started three weeks ago, as this may need to be changed. When to Return to the Emergency Department Come back to the emergency department immediately or call 911 if you experience any of the following: Fever that continues or gets worse after 48-72 hours of taking antibiotics Worsening flank or back pain Inability to keep down liquids or medications Confusion or difficulty staying awake Decreased urination or no urination Severe abdominal pain Vomiting that won't stop Blood in your urine that is new or getting worse Feeling dizzy or lightheaded when standing Any other symptoms that concern you What to Expect Most people start feeling better within 1-2 days of starting antibiotics. However, it may take several days to feel completely back to normal. If you do not notice any improvement after 1-2 days, contact your doctor or return to the emergency department. Important Reminders Take your full course of antibiotics - this typically lasts 7-14 days depending on which antibiotic you are prescribed Stay well hydrated - this helps your kidneys flush out the infection Keep your follow-up appointment - your doctor needs to make sure the infection is clearing Watch for warning signs - don't hesitate to return if symptoms worsen If you have any questions or concerns, contact your primary care provider or ret urn to the emergency department. Referrals: NO PRIMARY CARE PROVIDER (PCP) Education Educated: Patient Educated regarding: diagnosis, treatment, need for follow up SUZANNE NINAP Sep 13, 2025 20:18
[2025-09-13] MEDS: CefTRIAXone/D5W-Rocephin 1gm 50 ML IV ONE (20:48)
[2025-09-13] MEDS: POTASSIUM CHLORIDE 20 MEQ/15 ML oral solution PO SCH (22:22)
== END 2025-09-13 22:22 | disposition home or self-care (01) ==
LOC: ER 16:13
DX: N39.0 Urinary tract infection, site not specified (principal); E11.9 Type 2 diabetes mellitus without complications; I50.9 Heart failure, unspecified; I25.2 Old myocardial infarction; E03.9 Hypothyroidism, unspecified; F31.9 Bipolar disorder, unspecified; Z88.0 Allergy status to penicillin; Z87.440 Personal history of urinary (tract) infections; Z88.2 Allergy status to sulfonamides; E86.0 Dehydration; Z88.8 Allergy status to other drugs, medicaments and biological substances; Z79.82 Long term (current) use of aspirin; Z79.899 Other long term (current) drug therapy; Z72.89 Other problems related to lifestyle
CPT/HCPCS: 36415; 80053; 81001; 85025; 96361; 96365; 96375; 99284; J0696; J2405; J7030